=== PATIENT | female | born 1990 | race Asian ===

== ENCOUNTER 2017-08-09 10:43 | Inpatient (IN) | payer OTHER ==
[~2017-08-09] VITALS: Ht 160 cm; Wt 60.3 kg
[2017-08-09] MEDS: LACTATED RINGERS 1,000 ML IV SCH ×2 (02:45→11:44)
[~2017-08-09 10:43] MED LIST: PREN-380 PO
[2017-08-09] MEDS ORDERED: OXYTOCIN 10 UNITS/ML VIAL IM PRN (11:20)
[2017-08-09] MEDS ORDERED: NALBUPHINE 10 MG/ML AMP IVP PRN (11:20)
[2017-08-09] MEDS ORDERED: OXYTOCIN 20 UNITS in LACTATED RINGERS 1,000 ML IV SCH ×2 (11:20→11:35)
[2017-08-09] MEDS ORDERED: METHYLERGONOVINE 0.2 MG/ML AMP IM PRN (11:20)
[2017-08-09] MEDS ORDERED: PROMETHAZINE 25 MG/ML VIAL IVP PRN (11:20)
[2017-08-09] MEDS ORDERED: AMPICILLIN 2,000 MG in NACL 0.9% 100 ML IV SCH (11:30)
[2017-08-09] MEDS ORDERED: AMPICILLIN 2,000 MG VIAL ONE (11:48)
[2017-08-09 11:57] LABS: APPEARANCE,URINE CLEAR (CLEAR); BILIRUBIN,URINE NEGATIVE (NEGATIVE); BLOOD, URINE NEGATIVE (NEGATIVE); COLOR,URINE YELLOW (YELLOW); LEUKOCYTE ESTERASE ,URINE NEGATIVE (NEGATIVE); NITRITE, URINE NEGATIVE (NEGATIVE); UGLUCOSE NEGATIVE (NEGATIVE)
[2017-08-09] MEDS ORDERED: PROMETHAZINE 25 MG/ML VIAL ONE (11:57)
[2017-08-09] MEDS ORDERED: NALBUPHINE HYDROCHLORIDE 10 MG/ML VIAL ONE (11:57)
[2017-08-09 12:50] LABS: BASOPHILS # (AUTO) 0.1 K/uL (0.00-0.22); BASOPHILS % (AUTO) 0.6 % (0.0-2.0); EOSINOPHILS # (AUTO) 0.1 K/uL (0-0.4); EOSINOPHILS % (AUTO) 1.3 % (0.0-4.0); HEMATOCRIT 36.7 % (36-48); HEMOGLOBIN 12.3 g/dL (12.0-16.0); LYMPHOCYTES # (AUTO) 1.1 K/uL (2.5-16.5); LYMPHOCYTES % (AUTO) 11.1 % (20.5-51.1); MEAN CORPUSCULAR HEMOGLOBIN 30 pg (27-31); MEAN CORPUSCULAR HGB CONC 34 g/dL (33-37); MEAN CORPUSCULAR VOLUME 89 fL (80-94); MONOCYTES # (AUTO) 0.6 K/uL (0.8-1.0); MONOCYTES % (AUTO) 6.3 % (1.7-9.3); NEUTROPHILS # (AUTO) 8.2 K/uL (1.8-7.7); NEUTROPHILS % (AUTO) 80.7 % (42.2-75.2); PLATELET COUNT (AUTO) 182 K/uL (140-450); RED BLOOD CELL COUNT(AUTO) 4.12 MIL/uL (4.20-5.40); WHITE BLOOD COUNT (AUTO) 10.1 K/uL (4.8-10.8)
[2017-08-09] MEDS ORDERED: ROPIVACAINE 0.2%/NS PREMIX 250 ML EPI ONE (15:14)
[2017-08-09] MEDS ORDERED: MISOPROSTOL 25 MCG TAB ONE ×2 (15:29→19:57)
[2017-08-09] MEDS ORDERED: AMPICILLIN 1,000 MG VIAL ONE ×3 (15:51→23:53)
[2017-08-09] MEDS: AMPICILLIN 1,000 MG VIAL IVP SCH (20:00)
[2017-08-10] MEDS: AMPICILLIN 1,000 MG VIAL IVP SCH ×2 (04:00→08:05)
[2017-08-10] MEDS ORDERED: AMPICILLIN 1,000 MG VIAL ONE ×3 (04:03→11:50)
[2017-08-10] MEDS ORDERED: OXYTOCIN 20 UNITS/LR PREMIX 1,000 ML IV ONE (10:31)
[2017-08-10] MEDS: LACTATED RINGERS 1,000 ML IV SCH (10:55)
[2017-08-10] MEDS ORDERED: OXYTOCIN 10 UNITS/ML VIAL ONE (13:33)
[2017-08-10] MEDS ORDERED: oxyCODONE/APAP 5/325 MG 1 TAB TAB ONE (13:52)
[2017-08-10] MEDS ORDERED: oxyCODONE/APAP 5/325 MG 1 TAB TAB PO PRN (13:55)
[2017-08-10] MEDS ORDERED: HYDROcodone/APAP 5/325 MG 1 TAB TAB PO PRN (20:30)
[2017-08-10] MEDS ORDERED: MEASLES, MUMPS, AND RUBELLA 1 VIAL SQVAC PRN (20:30)
[2017-08-10] MEDS ORDERED: METHYLERGONOVINE 0.2 MG/ML AMP IM PRN (20:30)
[2017-08-10] MEDS ORDERED: OXYTOCIN 10 UNITS/ML VIAL IM PRN (20:30)
[2017-08-10] MEDS ORDERED: IBUPROFEN 800 MG TAB PO PRN (20:30)
[2017-08-10] MEDS ORDERED: TEMAZEPAM 15 MG CAP PO PRN (20:30)
[2017-08-10] MEDS ORDERED: BENZOCAINE/MENTHOL 20%-0.5% 60 GM CAN TP PRN (20:30)
[2017-08-10] MEDS: oxyCODONE/APAP 5/325 MG 1 TAB TAB PO PRN (20:46)
[2017-08-10] MEDS ORDERED: DOCUSATE SOD/SENNA 50/8.6 MG 1 TAB PO SCH (21:00)
[2017-08-11] MEDS: oxyCODONE/APAP 5/325 MG 1 TAB TAB PO PRN (05:06)
[2017-08-11 06:00] LABS: HEMATOCRIT 23.2 % (36-48); HEMOGLOBIN 7.8 g/dL (12.0-16.0)
--- NOTE | 2017-08-11 08:44 | NUR ---
PATIENT HAS BEEN SCREENED AND CATEGORIZED LOW NUTRITION RISK. PATIENT WILL BE SEEN WITHIN 7 DAYS OF ADMISSION. 08/15/[address]
[2017-08-11] MEDS ORDERED: DOCUSATE SOD/SENNA 50/8.6 MG 1 TAB PO SCH (21:00)
[2017-08-12] MEDS ORDERED: INFLUENZA VIRUS VACCINE QUAD 0.5 ML SYR IMVAC SCH (01:00)
== END 2017-08-12 15:55 | disposition home or self-care (01) | DRG 560 ==
LOC: MLD 10:43 → MFCC 08-10 20:00
PROVIDERS: ADMIT Obstetrics & Gynecology; ATTEND Obstetrics & Gynecology
PROC: 10D07Z6 Extraction of Products of Conception, Vacuum, Via Natural or Artificial Opening (ICD-10-PCS; principal; 2017-08-10)
PROC: 3E0P7GC Introduction of Other Therapeutic Substance into Female Reproductive, Via Natural or Artificial Opening (ICD-10-PCS; 2017-08-10)
PROC: 0W8NXZZ Division of Female Perineum, External Approach (ICD-10-PCS; 2017-08-10)
PROC: 00HU33Z Insertion of Infusion Device into Spinal Canal, Percutaneous Approach (ICD-10-PCS; 2017-08-10)
PROC: 3E0R3BZ Introduction of Anesthetic Agent into Spinal Canal, Percutaneous Approach (ICD-10-PCS; 2017-08-10)
PROC: 3E0234Z Introduction of Serum, Toxoid and Vaccine into Muscle, Percutaneous Approach (ICD-10-PCS; 2017-08-11)
PROC: 3E0234Z Introduction of Serum, Toxoid and Vaccine into Muscle, Percutaneous Approach (ICD-10-PCS; 2017-08-12)
DX: O99.824 Streptococcus B carrier state complicating childbirth (principal); O63.1 Prolonged second stage (of labor); Z37.0 Single live birth; Z3A.40 40 weeks gestation of pregnancy; Z23 Encounter for immunization; O09.03 Supervision of pregnancy with history of infertility, third trimester
CPT/HCPCS: 36415; 51702; 59200; 81003; 85018; 85025; 86592; 86886; 86900; 86901; 90658; 90715; J0290; J2300; J2550; J2590; J2795; J7120